=== PATIENT | male | born 1970 | race Caucasian/White ===

== ENCOUNTER 2021-02-14 11:43 | Emergency (ER) | payer OTHER ==
[2021-02-14 12:14] LABS: BASOPHIL 0.2 % (0-2); EOSINOPHIL 0.7 % (0-5); HCT 31.4 % (37.0-47.0); HGB 8.9 g/dl (12.5-16.0); LYMPHOCYTE 8.5 % (15-48); MCH 29.7 pg (25.0-31.0); MCHC 28.3 g/dL (32.0-36.0); MCV 104.7 fL (78.0-100.0); MONOCYTE 8.1 % (0-12); MPV 10.9 fL (6.0-9.5); NEUTROPHIL 81.5 % (41-80); NRBC 0; PLT 360 K/uL (150-400); RDW 15.9 % (11.5-14.0); WBC 9.8 K/uL (4.0-10.5)
[2021-02-14 12:24] LABS: INR 1.55 (0.9-1.2); PROTHROMBIN TIME 17.8 SECONDS (11.8-13.4)
[2021-02-14 12:25] LABS: PTT 31.9 SECONDS (24.4-34.7)
[2021-02-14 12:33] LABS: BILIRUBIN - TOTAL 0.4 mg/dL (0.2-1.0); BUN/CREAT RATIO (CALC) 23.4 RATIO; CREATININE 1.75 mg/dL (0.51-0.95); GLOBULIN (CALCULATION) 3.6 g/dL; POTASSIUM 5.9 mmol/L (3.5-5.1); TOTAL PROTEIN 6.6 g/dL (6.4-8.2)
[2021-02-14 12:40] LABS: CKMB 5.1 ng/mL (0.0-3.6); PRO-BNP 7531 pg/mL (<125)
[2021-02-14 13:28] LABS: LACTIC ACID 1.1 mmol/L (0.4-1.9)
== END 2021-02-14 14:55 | disposition other institution (70) ==
LOC: FER 11:43 → EDSEX 11:43 → FER 14:55
PROVIDERS: Emergency Medicine
DX: I13.0 Hypertensive heart and chronic kidney disease with heart failure and stage 1 through stage 4 chronic kidney disease, or unspecified chronic kidney disease (principal); I50.9 Heart failure, unspecified; E11.22 Type 2 diabetes mellitus with diabetic chronic kidney disease; N18.9 Chronic kidney disease, unspecified; I50.1 Left ventricular failure, unspecified; E11.10 Type 2 diabetes mellitus with ketoacidosis without coma; J44.9 Chronic obstructive pulmonary disease, unspecified; Z88.2 Allergy status to sulfonamides; Z88.8 Allergy status to other drugs, medicaments and biological substances; Z20.822 Contact with and (suspected) exposure to COVID-19
CPT/HCPCS: 36415; 36600; 71045; 80053; 82553; 82803; 83605; 83880; 84484; 85025; 85610; 85730; 87040; 93005; J1940; U0002